=== PATIENT | female | born 1990 | race Caucasian/White ===

== ENCOUNTER → 2021-07-18 17:32 | Outpatient (CLI) | payer OTHER, SELFPAY ==
[2021-07-18 18:58] LABS: HCG Quantitative /Beta subunit 10931 mIU/mL
--- NOTE | 2021-07-19 07:45 | PM.OBTRLD ---
Visit Information Visit Information Date of evaluation: 07/19/21 Primary OB Provider: Fang Hernandez On-call OB Provider: Alexander Manuel Reason for Evaluation: Yes other Comments/Additional reasons for admission: 25YO @ 40 weeks EGA by LMP and 7wk US who presents for evaluation of blood pressure. Was feeling dizzy in the shower last night and checked her BP a few times overnight, all were elevated >140/90. No SANTOS, vision changes, RUQ pain or increased edema. Uncomplicated PN care w/ CNM. Agreeable to IOL at any time. Desires low intervention . is present and supportive. Objective Labs Labs: Laboratory Results - last 24 hr 07/18/21 17:46 HCG, Quant [id number]
== END ==
PROVIDERS: PCP Nurse Practitioner Family; Referring Provider Nurse Practitioner Obstetrics & Gynecology; Visit Provider Nurse Practitioner Obstetrics & Gynecology
DX: N91.2 Amenorrhea, unspecified (principal)
CPT/HCPCS: 36415; 84702

== ENCOUNTER → 2021-07-21 10:28 | Outpatient (CLI) | payer OTHER, SELFPAY ==
[2021-07-21 13:22] LABS: HCG Quantitative /Beta subunit 22167 mIU/mL
== END ==
PROVIDERS: PCP Nurse Practitioner Family; Referring Provider Nurse Practitioner Obstetrics & Gynecology; Visit Provider Nurse Practitioner Obstetrics & Gynecology
DX: N91.2 Amenorrhea, unspecified (principal)
CPT/HCPCS: 36415; 84702